=== PATIENT | female | born 1980 | race Two or more races ===

== ENCOUNTER → 2017-10-03 | Outpatient (CLI) | payer OTHER ==
[~2017-10-03] MED LIST: FLONASE16 GM NS; GILTUSS TR TAB1 EACH PO; ZYRTEC10 MG PO
== END | disposition home or self-care (01) ==
LOC: PPHC 11:30 → NUTRICION 15:00
DX: Z78.9 Other specified health status (principal)

== ENCOUNTER 2018-03-28 07:07 | Outpatient (CLI) | payer OTHER | END 2018-03-28 07:16 | disposition home or self-care (01) | LOC: SONOGRAMA 07:07 | DX: M25.561 Pain in right knee (principal) ==

== ENCOUNTER 2018-04-04 18:25 | Outpatient (CLI) | payer OTHER | END 2018-04-05 10:06 | disposition home or self-care (01) | LOC: LAB 18:25 | DX: N39.0 Urinary tract infection, site not specified (principal) ==

== ENCOUNTER 2018-12-24 11:17 | Outpatient (CLI) | payer OTHER | END 2018-12-24 11:25 | disposition home or self-care (01) | LOC: RX STUDY 11:17 | DX: D25.9 Leiomyoma of uterus, unspecified (principal) ==

== ENCOUNTER 2019-03-14 14:22 | Outpatient (CLI) | payer OTHER | END 2019-03-14 15:29 | disposition home or self-care (01) | LOC: SONOGRAMA 14:22 | DX: Z34.01 Encounter for supervision of normal first pregnancy, first trimester (principal) ==

== ENCOUNTER 2019-03-22 09:25 | Outpatient (CLI) | payer OTHER | END 2019-03-22 09:38 | disposition home or self-care (01) | LOC: LAB 09:25 | DX: N91.1 Secondary amenorrhea (principal) ==

== ENCOUNTER → 2019-03-22 | Outpatient (CLI) | payer OTHER | END | disposition home or self-care (01) | LOC: SONOGRAMA 09:15 | DX: O03.4 Incomplete spontaneous abortion without complication (principal) ==

== ENCOUNTER → 2020-01-05 | Outpatient (CLI) | payer OTHER | END | disposition home or self-care (01) | LOC: PRENATAL 14:55 | DX: Z36.89 Encounter for other specified antenatal screening (principal); O09.521 Supervision of elderly multigravida, first trimester; O36.80X1 Pregnancy with inconclusive fetal viability, fetus 1; Z31.430 Encounter of female for testing for genetic disease carrier status for procreative management ==

== ENCOUNTER → 2020-02-16 | Outpatient (CLI) | payer OTHER | END | disposition home or self-care (01) | LOC: PRENATAL 10:00 | PROVIDERS: ATTEND Obstetrics & Gynecology | DX: O35.3XX1 Maternal care for (suspected) damage to fetus from viral disease in mother, fetus 1 (principal); O09.522 Supervision of elderly multigravida, second trimester ==

== ENCOUNTER → 2020-05-07 | Outpatient (CLI) | payer OTHER | END | disposition home or self-care (01) | LOC: PRENATAL 08:00 | PROVIDERS: ATTEND Obstetrics & Gynecology Maternal & Fetal Medicine | DX: O26.843 Uterine size-date discrepancy, third trimester (principal); O09.523 Supervision of elderly multigravida, third trimester; Z36.89 Encounter for other specified antenatal screening; Z3A.31 31 weeks gestation of pregnancy ==

== ENCOUNTER 2020-05-21 16:18 | Inpatient (IN) | payer OTHER ==
[~2020-05-21] VITALS: Ht 167.6 cm; Wt 77.1 kg
[2020-05-21] MEDS ORDERED: MACRODANTIN100 M1 PO (17:39)
[2020-05-21] MEDS ORDERED: PRENATABS RX T1 EACH PO (17:39)
== END 2020-05-25 19:46 | DRG 805 ==
LOC: LDR 16:18 → OB/GYN 05-23 05:15
PROVIDERS: ADMIT Obstetrics & Gynecology; ATTEND Obstetrics & Gynecology
PROC: 4A1HXCZ Monitoring of Products of Conception, Cardiac Rate, External Approach (ICD-10-PCS; 2020-05-21)
PROC: BY4FZZZ Ultrasonography of Third Trimester, Single Fetus (ICD-10-PCS; 2020-05-21)
PROC: 10E0XZZ Delivery of Products of Conception, External Approach (ICD-10-PCS; principal; 2020-05-23)
PROC: 0KQM0ZZ Repair Perineum Muscle, Open Approach (ICD-10-PCS; 2020-05-23)
PROC: 0W8NXZZ Division of Female Perineum, External Approach (ICD-10-PCS; 2020-05-23)
DX: O70.1 Second degree perineal laceration during delivery (principal); O60.14X0 Preterm labor third trimester with preterm delivery third trimester, not applicable or unspecified; Z37.0 Single live birth; O42.013 Preterm premature rupture of membranes, onset of labor within 24 hours of rupture, third trimester; Z22.330 Carrier of Group B streptococcus; Z3A.33 33 weeks gestation of pregnancy

== ENCOUNTER 2021-11-22 09:49 | Outpatient (CLI) | payer OTHER ==
[~2021-11-22 09:49] MED LIST changes: +MACRODANTIN100 M1 PO; +PRENATABS RX T1 EACH PO
== END 2021-11-22 10:50 | disposition home or self-care (01) ==
LOC: PRENATAL 09:49
PROVIDERS: ATTEND Obstetrics & Gynecology Maternal & Fetal Medicine
DX: O36.80X0 Pregnancy with inconclusive fetal viability, not applicable or unspecified (principal); O09.529 Supervision of elderly multigravida, unspecified trimester; Z3A.13 13 weeks gestation of pregnancy

== ENCOUNTER 2022-01-09 15:04 | Outpatient (CLI) | payer OTHER | END 2022-01-09 17:18 | disposition home or self-care (01) | LOC: PRENATAL 15:04 | PROVIDERS: ATTEND Obstetrics & Gynecology Maternal & Fetal Medicine | DX: O35.0XX0 Maternal care for (suspected) central nervous system malformation in fetus, not applicable or unspecified (principal); O35.3XX0 Maternal care for (suspected) damage to fetus from viral disease in mother, not applicable or unspecified; O09.529 Supervision of elderly multigravida, unspecified trimester; Z3A.20 20 weeks gestation of pregnancy ==

== ENCOUNTER 2022-01-24 08:43 | Outpatient (CLI) | payer OTHER | END 2022-01-24 09:55 | disposition home or self-care (01) | LOC: PRENATAL 08:43 | PROVIDERS: ATTEND Obstetrics & Gynecology Maternal & Fetal Medicine | DX: O09.529 Supervision of elderly multigravida, unspecified trimester (principal); O09.219 Supervision of pregnancy with history of pre-term labor, unspecified trimester; Z3A.22 22 weeks gestation of pregnancy; O26.879 Cervical shortening, unspecified trimester; O44.00 Complete placenta previa NOS or without hemorrhage, unspecified trimester ==

== ENCOUNTER 2022-03-16 09:29 | Outpatient (CLI) | payer OTHER ==
[~2022-03-16 09:29] MED LIST changes: +PROMETRIUM200 MG PO
== END 2022-03-16 11:03 | disposition home or self-care (01) ==
LOC: PRENATAL 09:29
PROVIDERS: ATTEND Obstetrics & Gynecology Maternal & Fetal Medicine
DX: O26.849 Uterine size-date discrepancy, unspecified trimester (principal); O09.529 Supervision of elderly multigravida, unspecified trimester; O09.219 Supervision of pregnancy with history of pre-term labor, unspecified trimester; O26.879 Cervical shortening, unspecified trimester; Z3A.29 29 weeks gestation of pregnancy

== ENCOUNTER 2022-05-17 14:00 | Inpatient (IN) | payer OTHER ==
[~2022-05-17] VITALS: Ht 167.6 cm; Wt 75.3 kg
[2022-05-22] MEDS ORDERED: ECOTRIN81 MG PO (10:37)
[2022-05-22] MEDS ORDERED: MACROBID 100 M100 MG PO (10:37)
[2022-05-22] MEDS ORDERED: [UNRECOGNIZED DRUG - OTHER] (10:38)
== END 2022-05-24 14:27 | disposition home or self-care (01) | DRG 807 ==
LOC: OB/GYN 05-22 07:10 → LDR 05-22 07:10 → OB/GYN 05-22 13:44
PROVIDERS: ADMIT Obstetrics & Gynecology; ATTEND Obstetrics & Gynecology
PROC: 10E0XZZ Delivery of Products of Conception, External Approach (ICD-10-PCS; principal; 2022-05-22)
PROC: 0HQ9XZZ Repair Perineum Skin, External Approach (ICD-10-PCS; 2022-05-22)
PROC: 4A1HXCZ Monitoring of Products of Conception, Cardiac Rate, External Approach (ICD-10-PCS; 2022-05-22)
DX: O70.0 First degree perineal laceration during delivery (principal); Z37.0 Single live birth; Z3A.39 39 weeks gestation of pregnancy; Z20.822 Contact with and (suspected) exposure to COVID-19

== ENCOUNTER 2022-08-25 12:30 | Outpatient (CLI) | payer OTHER ==
[~2022-08-25 12:30] MED LIST changes: +ECOTRIN81 MG PO; +MACROBID 100 M100 MG PO; +[UNRECOGNIZED DRUG - OTHER]
== END 2022-08-25 12:40 | disposition home or self-care (01) ==
LOC: PPH VACUNA 12:30
PROVIDERS: ATTEND Emergency Medicine Pediatric Emergency Medicine
DX: Z23 Encounter for immunization (principal)

== ENCOUNTER 2023-11-02 08:32 | Outpatient (CLI) | payer OTHER | END 2023-11-02 08:34 | disposition home or self-care (01) | LOC: PRENATAL 08:32 | PROVIDERS: ATTEND Obstetrics & Gynecology Maternal & Fetal Medicine | DX: O36.80X0 Pregnancy with inconclusive fetal viability, not applicable or unspecified (principal); Z36.9 Encounter for antenatal screening, unspecified; O09.529 Supervision of elderly multigravida, unspecified trimester; O26.859 Spotting complicating pregnancy, unspecified trimester; Z3A.10 10 weeks gestation of pregnancy ==

== ENCOUNTER 2024-05-18 10:55 | Emergency (ER) | payer OTHER ==
[~2024-05-18] VITALS: Ht 167.6 cm; Wt 62.1 kg
[2024-05-18] MEDS ORDERED: 0.9 % SODIUM CHLORIDE 1,000 ML IV ONE (11:30)
[2024-05-18 11:45] LABS: HEMATOCRIT 41.6 % (36.0-45.00); HEMOGLOBIN 14.2 g/dL (12.0-15.00); MEAN CELL VOLUME 88.2 fL (80.00-100.00); MEAN CORPUSCULAR HEMOGLOBIN 30.1 pg (27.00-32.0); MEAN CORPUSCULAR HGB CONC 34.1 g/dl (32.0-36.0); PLATELET COUNT 286 K/uL (150-450); RED BLOOD COUNT 4.71 M/uL (4.00-6.00); RED CELL DISTRIBUTION WIDTH 13.2 % (11.5-14.5)
[2024-05-18 13:53] LABS: PH,URINE 7.5 (5.0-8.0); URINE APPEARANCE Cloudy; URINE BILIRRUBIN Negative (NEGATIVE); URINE BLOOD Large; URINE COLOR Yellow; URINE GLUCOSE Negative (NEGATIVE); URINE KETONE Negative (NEGATIVE); URINE LEUKOCYTE Trace; URINE NITRATE Negative; URINE PROTEIN Negative (NEGATIVE); URINE UROBILINOGEN 0.2 E.U./dl
[2024-05-18 13:56] LABS: URINE BACTERIA 772.3 uL (0.0-1933); URINE EPITHELIAL CELLS 31.5 uL (0.0-38.8); URINE RBC 71.9 uL (0.0-20.8); URINE WBC 23.8 uL (0.0-23.2)
[2024-05-18 14:29] LABS: URINE CAST 0.15 uL (0.0-1.40); URINE CRYSTALS FEW /HPF
[2024-05-18] MEDS ORDERED: AMOX1TAB5 PO (14:36)
[2024-05-18] MEDS ORDERED: NEURONTIN300 MG PO (14:36)
[2024-05-18] MEDS ORDERED: PEPCID AC20 MG PO (14:36)
== END 2024-05-18 14:47 | disposition home or self-care (01) ==
LOC: ER 10:56
PROVIDERS: General Practice
DX: O20.9 Hemorrhage in early pregnancy, unspecified (principal); Z3A.12 12 weeks gestation of pregnancy

== ENCOUNTER 2024-05-27 15:29 | Outpatient (CLI) | payer OTHER ==
[~2024-05-27 15:29] MED LIST changes: +AMOX1TAB5 PO; +NEURONTIN300 MG PO; +PEPCID AC20 MG PO
== END 2024-05-27 15:31 | disposition home or self-care (01) ==
LOC: PRENATAL 15:29
PROVIDERS: ATTEND Obstetrics & Gynecology Maternal & Fetal Medicine
DX: O36.80X0 Pregnancy with inconclusive fetal viability, not applicable or unspecified (principal); Z36.82 Encounter for antenatal screening for nuchal translucency; O09.529 Supervision of elderly multigravida, unspecified trimester; Z36.0 Encounter for antenatal screening for chromosomal anomalies; Z3A.13 13 weeks gestation of pregnancy

== ENCOUNTER 2024-07-11 14:03 | Outpatient (CLI) | payer OTHER | END 2024-07-11 14:04 | disposition home or self-care (01) | LOC: PRENATAL 14:03 | PROVIDERS: ATTEND Obstetrics & Gynecology Maternal & Fetal Medicine | DX: O44.00 Complete placenta previa NOS or without hemorrhage, unspecified trimester (principal); O09.529 Supervision of elderly multigravida, unspecified trimester; Z3A.20 20 weeks gestation of pregnancy ==

== ENCOUNTER 2024-09-07 12:18 | Outpatient (CLI) | payer OTHER ==
[~2024-09-07] VITALS: Ht 167.6 cm; Wt 65.3 kg
[2024-09-07 12:35] VITALS: BP 113/73
[2024-09-07] MEDS ORDERED: ENDOMETRIN100 MG VAG (12:56)
[2024-09-07 13:16] LABS: URINE APPEARANCE Cloudy; URINE BILIRRUBIN Negative (NEGATIVE); URINE BLOOD Negative; URINE COLOR Yellow; URINE GLUCOSE Negative (NEGATIVE); URINE KETONE Negative (NEGATIVE); URINE LEUKOCYTE Moderate; URINE NITRATE Negative; URINE PROTEIN Negative (NEGATIVE); URINE UROBILINOGEN 0.2 E.U./dl
[2024-09-07 13:19] LABS: URINE BACTERIA 53.8 uL (0.0-1933); URINE EPITHELIAL CELLS 25.1 uL (0.0-38.8); URINE RBC 107.5 uL (0.0-20.8); URINE WBC 50.3 uL (0.0-23.2)
[2024-09-07] MEDS ORDERED: FLUCONAZOLE 150 MG TABLET PO ONE (13:30)
[2024-09-07 13:32] LABS: HEMATOCRIT 38.5 % (36.0-45.00); HEMOGLOBIN 13.1 g/dL (12.0-15.00); MEAN CELL VOLUME 88.6 fL (80.00-100.00); MEAN CORPUSCULAR HEMOGLOBIN 30.1 pg (27.00-32.0); PLATELET COUNT 226 K/uL (150-450); RED BLOOD COUNT 4.35 M/uL (4.00-6.00); RED CELL DISTRIBUTION WIDTH 14.1 % (11.5-14.5)
[2024-09-07 13:46] VITALS: BP 113/83
[2024-09-07 13:51] LABS: URINE CAST 0.14 uL (0.0-1.40)
[2024-09-07 13:55] LABS: ALBUMIN 2.9 gm/dL (3.4-5.0); BILIRUBIN TOTAL 0.19 mg/dL (0.3-1.2); CALCIUM 9.4 mg/dL (8.5-10.1); CREATININE SERUM 0.55 mg/dL (0.55-1.02); GFR 120.07; GLOBULINA 3.8 G/DL (2.4-3.5); POTASSIUM 4.49 mEq/L (3.5-5.1); TOTAL PROTEIN 6.7 gm/dL (6.4-8.2)
== END 2024-09-07 14:10 | disposition home or self-care (01) ==
LOC: OBS/DEL 12:18
PROVIDERS: Student in an Organized Health Care Education/Training Program; ATTEND Obstetrics & Gynecology
DX: O23.593 Infection of other part of genital tract in pregnancy, third trimester (principal); Z3A.28 28 weeks gestation of pregnancy

== ENCOUNTER 2024-10-03 08:30 | Outpatient (CLI) | payer OTHER ==
[~2024-10-03 08:30] MED LIST changes: +ENDOMETRIN100 MG VAG
== END 2024-10-03 08:31 | disposition home or self-care (01) ==
LOC: PRENATAL 08:30
PROVIDERS: ATTEND Obstetrics & Gynecology Maternal & Fetal Medicine
DX: O26.849 Uterine size-date discrepancy, unspecified trimester (principal); O36.8199 Decreased fetal movements, unspecified trimester, other fetus; O09.529 Supervision of elderly multigravida, unspecified trimester; Z3A.33 33 weeks gestation of pregnancy

== ENCOUNTER → 2024-10-17 10:42 | Outpatient (CLI) | payer OTHER | END | disposition home or self-care (01) | LOC: PRENATAL 10:42 | PROVIDERS: ATTEND Obstetrics & Gynecology Maternal & Fetal Medicine | DX: O26.849 Uterine size-date discrepancy, unspecified trimester (principal); O36.8199 Decreased fetal movements, unspecified trimester, other fetus; O41.00X0 Oligohydramnios, unspecified trimester, not applicable or unspecified; Z3A.34 34 weeks gestation of pregnancy ==

== ENCOUNTER 2024-11-12 15:42 | Outpatient (CLI) | payer OTHER | END 2024-11-12 17:10 | disposition home or self-care (01) | LOC: NST 15:42 | PROVIDERS: ATTEND General Practice | DX: Z34.83 Encounter for supervision of other normal pregnancy, third trimester (principal) ==

== ENCOUNTER 2024-11-18 10:16 | Inpatient (IN) | payer OTHER ==
[~2024-11-18] VITALS: Ht 167.6 cm; Wt 74.8 kg
[2024-11-18] VITALS (7 sets, daily range): BP systolic 121–140; BP diastolic 65–83
[2024-11-18] MEDS ORDERED: PRENATAL TABLE1 EAC4 PO (10:21)
[2024-11-18] MEDS ORDERED: RINGERS SOLUTION,LACTATED 1,000 ML IV SCH (10:45)
[2024-11-18] MEDS ORDERED: CHLORHEXIDINE GLUCONATE 120 ML BOTTLE TOP ONE ×2 (10:50→11:45)
[2024-11-18] MEDS ORDERED: OXYTOCIN 20 UNITS/1000ML RL PIGGYBAG IV ONE (10:50)
[2024-11-18] MEDS ORDERED: ERYTHROMYCIN BASE OPHT 1GM EACH TUBE OP ONE ×2 (10:50→13:30)
[2024-11-18] MEDS ORDERED: LIDOCAINE HCL 1% 10ML VIAL ONE (10:50)
[2024-11-18 11:10] LABS: HEMATOCRIT 42.4 % (36.0-45.00); HEMOGLOBIN 14.3 g/dL (12.0-15.00); MEAN CELL VOLUME 90.1 fL (80.00-100.00); MEAN CORPUSCULAR HEMOGLOBIN 30.3 pg (27.00-32.0); MEAN CORPUSCULAR HGB CONC 33.7 g/dl (32.0-36.0); PLATELET COUNT 177 K/uL (150-450); RED BLOOD COUNT 4.71 M/uL (4.00-6.00); RED CELL DISTRIBUTION WIDTH 14.2 % (11.5-14.5)
[2024-11-18 11:14] LABS: PH,URINE 7.5 (5.0-8.0); URINE APPEARANCE Clear; URINE BILIRRUBIN Negative (NEGATIVE); URINE BLOOD Negative; URINE COLOR Yellow; URINE GLUCOSE Negative (NEGATIVE); URINE KETONE Negative (NEGATIVE); URINE LEUKOCYTE Negative; URINE NITRATE Negative; URINE PROTEIN Negative (NEGATIVE)
[2024-11-18 11:15] LABS: URINE BACTERIA 162.6 uL (0.0-1933); URINE EPITHELIAL CELLS 8.2 uL (0.0-38.8); URINE WBC 4.8 uL (0.0-23.2)
[2024-11-18 11:34] LABS: INR < 0.93; PARTIAL THROMBOPLASTIN TIME 28.2 SECONDS (22.0-34.0); PROTHROMBIN TIME 10.2 SECONDS (9.0-11.5)
[2024-11-18] MEDS ORDERED: IBUprofen 800 MG TABLET PO PRN (11:45)
[2024-11-18] MEDS ORDERED: OXYTOCIN 1,000 ML IV SCH (11:45)
[2024-11-18 11:52] LABS: ALBUMIN 2.8 gm/dL (3.4-5.0); BILIRUBIN TOTAL 0.42 mg/dL (0.3-1.2); CALCIUM 9.4 mg/dL (8.5-10.1); CREATININE SERUM 0.5 mg/dL (0.55-1.02); GFR 134.03; POTASSIUM 3.79 mEq/L (3.5-5.1); TOTAL PROTEIN 6.8 gm/dL (6.4-8.2)
[2024-11-18] MEDS ORDERED: KETOROLAC TROMETHAMINE 30 MG VIAL IV ONE (12:45)
[2024-11-18] MEDS ORDERED: KETOROLAC TROMETHAMINE 30 MG VIAL ONE (12:54)
[2024-11-18] MEDS ORDERED: BENZOCAINE/MENTHOL 90 ML BOTTLE TOP SCH (13:00)
[2024-11-18] MEDS ORDERED: LIDOCAINE HCL 1% 10ML VIAL PERCUT ONE (13:30)
[2024-11-18] MEDS ORDERED: DOCUSATE SODIUM 100MG CAP PO SCH (17:00)
[2024-11-19 00:30] VITALS: BP 107/77
[2024-11-19 08:00] VITALS: BP 116/73
[2024-11-19 11:31] LABS: HEMATOCRIT 32.3 % (36.0-45.00); MEAN CORPUSCULAR HEMOGLOBIN 30.5 pg (27.00-32.0); MEAN CORPUSCULAR HGB CONC 33.9 g/dl (32.0-36.0); PLATELET COUNT 154 K/uL (150-450); RED BLOOD COUNT 3.59 M/uL (4.00-6.00); RED CELL DISTRIBUTION WIDTH 14.3 % (11.5-14.5)
[2024-11-19 16:00] VITALS: BP 131/80
[2024-11-20] VITALS: BP 102/61
[2024-11-20 08:00] VITALS: BP 110/55
[2024-11-20 15:00] VITALS: BP 125/80
[2024-11-20] MEDS ORDERED: IBUPROFEN800 MG PO (16:16)
[2024-11-20] MEDS ORDERED: COLACE100 MG PO (16:16)
[2024-11-20 17:09] VITALS: BP 120/80
== END 2024-11-20 18:32 | disposition home or self-care (01) | DRG 807 ==
LOC: OB/GYN 10:16 → LDR 10:16 → OB/GYN 12:54
PROVIDERS: Student in an Organized Health Care Education/Training Program; ADMIT Obstetrics & Gynecology; ATTEND Obstetrics & Gynecology
PROC: 10E0XZZ Delivery of Products of Conception, External Approach (ICD-10-PCS; principal; 2024-11-18)
PROC: 0HQ9XZZ Repair Perineum Skin, External Approach (ICD-10-PCS; 2024-11-18)
PROC: 4A1HXCZ Monitoring of Products of Conception, Cardiac Rate, External Approach (ICD-10-PCS; 2024-11-18)
DX: O70.0 First degree perineal laceration during delivery (principal); Z37.0 Single live birth; Z3A.38 38 weeks gestation of pregnancy